=== PATIENT | female | born 1980 | race Hispanic/Latino ===

== ENCOUNTER → 2021-09-28 | Outpatient (CLI) | payer BC | LOC: MAMMO 09:33 | PROVIDERS: ATTEND Obstetrics & Gynecology | DX: Z12.31 Encounter for screening mammogram for malignant neoplasm of breast (principal) | CPT/HCPCS: 77067 ==

== ENCOUNTER → 2023-12-05 | Outpatient (REF) | payer BC | LOC: MAMMO 10:53 | PROVIDERS: ATTEND Obstetrics & Gynecology | DX: Z12.31 Encounter for screening mammogram for malignant neoplasm of breast (principal) | CPT/HCPCS: 77067 ==

== ENCOUNTER 2024-04-29 01:32 | Emergency (ER) | payer BC ==
[~2024-04-29] VITALS: Ht 162.6 cm; Wt 68.9 kg
[2024-04-29 01:32] VITALS: TEMP 98.1
[2024-04-29 01:54] LABS: BASOPHILS # (AUTO) 0.1 (0.0-0.1); BASOPHILS % 0.7 % (0.0-1.0); EOSINOPHILS # (AUTO) 0.2 (0.0-0.4); EOSINOPHILS % 2.9 % (0.0-6.0); HEMATOCRIT 31.3 % (34.2-44.1); HEMOGLOBIN 9.9 g/dL (12.0-16.0); LYMPHOCYTES # (AUTO) 2.6 (1.0-3.2); LYMPHOCYTES % 35.8 % (18.0-39.1); MEAN CORPUSCULAR HEMOGLOBIN 23.5 pg (28-32); MEAN CORPUSCULAR HGB CONC 31.6 g/dL (31-35); MEAN CORPUSCULAR VOLUME 74.2 fL (81-99); MONOCYTES # (AUTO) 0.6 (0.2-0.8); MONOCYTES % 7.6 % (4.4-11.3); NEUTROPHILS # (AUTO) 3.8 (2.1-6.9); NEUTROPHILS % 52.7 % (38.7-80.0); PLATELET COUNT 365 x10e3/uL (140-360); RED BLOOD COUNT 4.22 x10e6/uL (3.6-5.1); RED CELL DISTRIBUTION WIDTH 16.3 % (11.7-14.4); WHITE BLOOD COUNT 7.21 x10e3/uL (4.8-10.8)
[2024-04-29] MEDS: LIDOCAINE VISC 2% SOLN 15 ML UDC PO STA (01:59)
[2024-04-29] MEDS: BELLADONNA ALK/PHENOBARBITAL 5 ML UDC PO ONE (01:59)
[2024-04-29] MEDS: MAGNESIUM/ALUMINUM/SIMETHICONE 30 ML UDC PO STA (01:59)
[2024-04-29 02:23] LABS: ALANINE AMINOTRANSFERASE 8 IU/L (0-55); ALBUMIN/GLOBULIN RATIO 1.1 (0.8-2.0); ALKALINE PHOSPHATASE 92 IU/L (40-150); ANION GAP 14.7 mmol/L (8-16); BILIRUBIN,TOTAL 0.2 mg/dL (0.2-1.2); BLOOD UREA NITROGEN 9 mg/dL (7-26); BUN/CREATININE RATIO 13 (6-25); CALCIUM 9.1 mg/dL (8.4-10.2); CARBON DIOXIDE 25 mmol/L (22-29); CHLORIDE 104 mmol/L (98-107); CREATINE KINASE 86 IU/L (29-168); EST GLOMERULAR FILTRATION RATE 110 ML/MIN (>=60); GLUCOSE 107 mg/dL (74-118); POTASSIUM 3.7 mmol/L (3.5-5.1); SODIUM 140 mmol/L (136-145); TOTAL PROTEIN 7.5 g/dL (6.5-8.1)
[2024-04-29 02:53] LABS: TROPONIN I < 0.05 ng/mL (0.0-0.40)
[2024-04-29] MEDS ORDERED: PANTOPRAZOLE SO40 MG PO (02:57)
[2024-04-29] MEDS ORDERED: ONDANSETRON ODT4 MG PO (02:57)
[2024-04-29 03:07] VITALS: PULSE 77; RESP 19; O2SAT 100
[2024-05-01] MEDS ORDERED: FEROSUL325 MG PO (12:12)
[2024-05-01] MEDS ORDERED: VITAMIN B-121000 MCG PO (12:12)
== END 2024-04-29 03:07 | disposition home or self-care (01) ==
LOC: ER 01:43
DX: R06.02 Shortness of breath (principal); R07.89 Other chest pain; R07.0 Pain in throat; K21.9 Gastro-esophageal reflux disease without esophagitis
CPT/HCPCS: 36415; 71045; 80053; 82550; 83518; 83690; 83880; 84484; 85025; 87070; 93005; 99284

== ENCOUNTER → 2024-05-05 | Day surgery (SDC) | payer BC ==
[~2024-05-05] MED LIST: FENTANYL CITRATE/PF 100MCG/2 ML INJ ONE; FEROSUL325 MG PO; LACTATED RINGER'S 1,000 ML ONE; METOCLOPRAMIDE HCL 10 MG/2ML VIAL ONE; ONDANSETRON ODT4 MG PO; PANTOPRAZOLE SO40 MG PO; PROPOFOL IV EMULSION 10 MG/ML 20 ML VIAL ONE; PROPOFOL IV EMULSION 50 ML IV ONE; VITAMIN B-121000 MCG PO
[2024-05-05 13:50] VITALS: TEMP 97
[2024-05-05 14:20] VITALS: BP 135/81; PULSE 85; RESP 15; O2SAT 100
== END | disposition home or self-care (01) ==
LOC: OR 11:22
PROVIDERS: ATTEND Internal Medicine Gastroenterology
DX: K29.70 Gastritis, unspecified, without bleeding (principal); K22.89 Other specified disease of esophagus; K21.00 Gastro-esophageal reflux disease with esophagitis, without bleeding; K44.9 Diaphragmatic hernia without obstruction or gangrene; D64.9 Anemia, unspecified; Z71.89 Other specified counseling; Z68.25 Body mass index [BMI] 25.0-25.9, adult; Z71.3 Dietary counseling and surveillance
CPT/HCPCS: 43239; 81025; J2470; J2704 ×2; J2765; J3010; J7121

== ENCOUNTER 2024-05-31 21:05 | Emergency (ER) | payer BC ==
[~2024-05-31] VITALS: Ht 162.6 cm; Wt 68.9 kg
[~2024-05-31 21:05] MED LIST changes: -FENTANYL CITRATE/PF 100MCG/2 ML INJ ONE; -LACTATED RINGER'S 1,000 ML ONE; -METOCLOPRAMIDE HCL 10 MG/2ML VIAL ONE; -PROPOFOL IV EMULSION 10 MG/ML 20 ML VIAL ONE; -PROPOFOL IV EMULSION 50 ML IV ONE
[2024-05-31 21:15] VITALS: PULSE 82; RESP 17; TEMP 98.5
[2024-05-31] MEDS: BELLADONNA ALK/PHENOBARBITAL 5 ML UDC PO ONE (22:41)
[2024-05-31] MEDS: MAGNESIUM/ALUMINUM/SIMETHICONE 30 ML UDC PO ONE (22:41)
[2024-05-31 23:20] VITALS: BP 126/74; PULSE 73; RESP 17; TEMP 98; O2SAT 98
== END 2024-05-31 23:15 | disposition home or self-care (01) ==
LOC: ER 22:32
DX: K21.9 Gastro-esophageal reflux disease without esophagitis (principal)
CPT/HCPCS: 99282